=== PATIENT | female | born 1990 | race Two or more races ===

== ENCOUNTER 2017-04-12 22:55 | Emergency (ER) | payer MEDICAID ==
[2017-04-12 23:07] VITALS: RESP 16; TEMP 98.1; O2SAT 96
[2017-04-12] MEDS ORDERED: CARBAMIDE PEROXIDE 15 ML OTIC.BTL RTEAR ONE (23:32)
--- NOTE | 2017-04-12 23:35 | EDPHY ---
H & P Time Seen by Provider: 04/12/17 23:05 HPI/ROS: This patient complains of a 6 week history of right ear feeling clogged. She tried irrigating at home without success. She reports diminished hearing in the affected ear reporting that feels muffled. She reports mild discomfort as well. She notes no exacerbating or alleviating factors. She denies any other associated symptoms. She came here by private vehicle along with her mother his being seen for different complaint. ROS: Constitutional: No fevers HEENT: No nasal congestion. No left ear symptoms. No sore throat. Pulmonary: No complaints 5 point ROS is otherwise negative Past Medical/Surgical History: Obesity. Otherwise healthy Smoking Status: Never smoked Physical Exam: Physical Exam Vital signs are normal. General: No acute distress HEENT: Nose: Clear. Ears: Right ear: External canal evaluation reveals cerumen impaction. Tympanic membrane is not visible. Left external canal and TM are clear. Oropharynx: No erythema or exudates. No dysphonia. No drooling or stridor. Eyes: Pupils equal and react to light. Extraocular motions are intact. Neck: Supple with no meningismus. No lymphadenopathy Lungs: No respiratory distress. Skin: No rash or pallor. Neuro: Alert with no focal deficits noted. Initial differential diagnosis: Cerumen impaction, serous otitis, otitis media Constitutional: Initial Vital Signs Temperature (C) 36.7 C 04/12/17 23:03 Heart Rate 86 04/12/17 23:03 Respiratory Rate 16 04/12/17 23:03 Blood Pressure 119/72 04/12/17 23:03 O2 Sat (%) 96 04/12/17 23:03 O2 Delivery Mode Room Air Allergies/Adverse Reactions: No Known Allergies Allergy (Verified 03/22/12 11:39) Home Medications: Medication Instructions Recorded Ciprofloxacin/Dexamethasone 4 drops OTIC BID #1 bottle 04/13/17 [Ciprodex] MDM/Departure - MDM Medications Given: Discontinued Medications Carbamide Peroxide (Debrox) 5 drop RTEAR EDNOW ONE Stop: 04/12/17 23:33 Last Admin: 04/12/17 23:44 Dose: 5 drop ED Course/Re-evaluation: Debrox right ear followed by irrigation by our tech with release of cerumen On repeat examination the right external canal is edematous and erythematous consistent with otitis externa. I counseled patient regarding this with plan to treat her with Ciprodex. She will follow up with ENT if she still not improving with treatment plan. - Depart Disposition: Home, Routine, Self-Care Clinical Impression: Impacted cerumen of right ear Otitis externa Qualifiers: Otitis externa type: swimmer's ear Chronicity: acute Laterality: right Qualified Code(s): H60.331 - Swimmer's ear, right ear Condition: Good Instructions: Otitis Externa (ED) Additional Instructions: Diagnosis: Otitis externa Plan: Ciprodex ear drops as prescribed Ibuprofen Tylenol for discomfort as needed Follow up with Dr. Bustamante-ENT specialist if your symptoms are not improving with treatment plan over the next 5-7 days. Prescriptions: Ciprofloxacin/Dexamethasone [Ciprodex] 4 drops OTIC BID #1 bottle Referrals: Patient,NotPresent [Primary Care Provider] - As per Instructions
[2017-04-13 00:27] VITALS: BP 120/69; PULSE 70
== END 2017-04-13 00:27 | disposition home or self-care (01) ==
LOC: CED 22:55
DX: H60.331 Swimmer's ear, right ear (principal); H61.21 Impacted cerumen, right ear